=== PATIENT | female | born 2000 | race Caucasian/White ===

== ENCOUNTER 2021-05-19 18:13 | Emergency (ER) | payer OTHER ==
[~2021-05-19] VITALS: Ht 157.5 cm; Wt 53.1 kg
[2021-05-19] MEDS ORDERED: CENTANY30 GM TOP (19:20)
[2021-05-19] MEDS ORDERED: AUGMENTIN 875-1 EACH PO (19:20)
[2021-05-19 19:45] VITALS: BP 127/75
== END 2021-05-19 20:07 | disposition home or self-care (01) ==
LOC: M.ERS 18:13
DX: S61.452A Open bite of left hand, initial encounter (principal); Z88.5 Allergy status to narcotic agent; W54.0XXA Bitten by dog, initial encounter; Y93.89 Activity, other specified; Y92.89 Other specified places as the place of occurrence of the external cause; Y99.8 Other external cause status